=== PATIENT | male | born 1940 | race Two or more races ===

== ENCOUNTER 2019-08-25 10:15 | Inpatient (IN) | payer OTHER ==
--- NOTE | 2019-08-25 10:45 | PDOC ---
History of Present Illness - General Chief Complaint: Syncope/Near Syncope Stated Complaint: NAUSEA/VOMITING Time Seen by Provider: 08/25/19 10:43 - History of Present Illness Initial Comments: Quirino Oshea is a 79 y/o male with PMH significant for gastric CA s/p gastric resection 6 years ago, and colon CA dx 1 year ago, presenting today s/p near syncope and fall. Reports that he also had nausea and vomiting x3 days NB NB. Denies fall/head trauma/LOC. Denies heart palpitations/dizziness. Denies chest pain/shortness of breath. Reports nml bowel movement today. No diarrhea/constipation. No leg swelling. No back pain. Past History - Medical History Allergies/Adverse Reactions: Allergies Allergy/AdvReac Type Severity Reaction Status Date / Time No Known Allergies Allergy Verified 08/25/19 12:19 Home Medications: Ambulatory Orders Amlodipine Besylate [Norvasc -] 10 mg PO DAILY 08/25/19 Lisinopril 20 mg PO DAILY 08/25/19 Omeprazole 20 mg PO DAILY 08/25/19 metFORMIN HCL [Metformin HCl] 500 mg PO DAILY 08/25/19 Review of Systems - Review of Systems Comments:: GENERAL/CONSTITUTIONAL: No fever or chills. No weakness._ HEAD, EYES, EARS, NOSE AND THROAT: No change in vision. No change in hearing. No sore throat._ CARDIOVASCULAR: No chest pain or shortness of breath_ RESPIRATORY: Denies cough, hemoptysis_ GASTROINTESTINAL: Reports nausea and vomiting. No diarrhea or constipation._ GENITOURINARY: No dysuria, frequency, or change in urination._ MUSCULOSKELETAL: No joint or muscle swelling or pain. No neck or back pain._ SKIN: No rash_ NEUROLOGIC: Reports near syncope. No headache, vertigo, or change in strength/sensation._ ENDOCRINE: No increased thirst. No abnormal weight change_ HEMATOLOGIC/LYMPHATIC: No anemia, easy bleeding, or history of blood clots._ ALLERGIC/IMMUNOLOGIC: No hives or skin allergy._ *Physical Exam - Physical Exam GENERAL: Awake, alert, and oriented to person/place/time, in no acute distress_ HEAD: No signs of trauma, normocephalic, atraumatic _ EYES: PERRLA, EOMI, sclera anicteric, conjunctiva clear_ ENT: Hearing grossly normal, nares patent, oropharynx clear without exudates. No uvular deviation. Moist mucosa_ NECK: Normal ROM, supple, no lymphadenopathy, JVD, or masses_ LUNGS: No distress, speaks in full sentences, clear to auscultation bilaterally _ HEART: Regular rate and rhythm, normal S1 and S2, no murmurs appreciated, periph eral pulses normal and equal bilaterally._ ABDOMEN: Soft, nontender, normoactive bowel sounds. No guarding, no rebound. No masses_ EXTREMITIES: Normal inspection, Normal range of motion, no edema. No clubbing or cyanosis_ NEUROLOGICAL: Cranial nerves II through XII grossly intact. Normal speech, amb ulates with cane, no focal sensorimotor deficits _ SKIN: Warm, Dry, normal turgor, no rashes or lesions noted_ ED Treatment Course - LABORATORY CBC & Chemistry Diagram: 08/25/19 10:50 08/25/19 10:50 Medical Decision Making - Medical Decision Making 08/25/19 10:44 79M hx of colon CA s/p abdominal surgery presenting today with abd pain, nausea, and vomiting x3 days and near syncope and fall today. -labs -ekg -cxr -CT head -CT neck -CT t spine -CT abd 08/25/19 12:42 CXR negative for acute chest pathology. Labs reviewed. Laboratory Last Values WBC 5.9 K/mm3 (4.0-10.0) 08/25/19 10:50 RBC 4.44 M/mm3 (4.00-5.60) 08/25/19 10:50 Hgb 10.7 GM/dL (11.7-16.9) L 08/25/19 10:50 Hct 33.7 % (35.4-49) L 08/25/19 10:50 MCV 75.8 fl (80-96) L 08/25/19 10:50 MCH 24.0 pg (25.7-33.7) L 08/25/19 10:50 MCHC 31.7 g/dl (32.0-35.9) L 08/25/19 10:50 RDW 23.6 % (11.9-15.9) H 08/25/19 10:50 Plt Count 155 K/MM3 (134-434) 08/25/19 10:50 MPV 7.0 fl (7.5-11.1) L 08/25/19 10:50 Absolute Neuts (auto) 4.8 K/mm3 (1.5-8.0) 08/25/19 10:50 Neutrophils % 81.4 % (42.8-82.8) 08/25/19 10:50 Neutrophils % (Manual) 86.7 % (42.8-82.8) H 08/25/19 10:50 Band Neutrophils % 1.0 % 08/25/19 10:50 Lymphocytes % 8.3 % (8-40) 08/25/19 10:50 Lymphocytes % (Manual) 9.2 % (8-40) 08/25/19 10:50 Monocytes % 9.8 % (3.8-10.2) 08/25/19 10:50 Monocytes % (Manual) 3 % (3.8-10.2) L 08/25/19 10:50 Eosinophils % 0.2 % (0-4.5) 08/25/19 10:50 Eosinophils % (Manual) 0.0 % (0-4.5) 08/25/19 10:50 Basophils % 0.3 % (0-2.0) 08/25/19 10:50 Basophils % (Manual) 0.0 % (0-2.0) 08/25/19 10:50 Myelocytes % (Man) 0 % (0-2) 08/25/19 10:50 Promyelocytes % (Man) 0 % (0-2) 08/25/19 10:50 Blast Cells % (Manual) 0 % (0-0) 08/25/19 10:50 Nucleated RBC % 0 % (0-0) 08/25/19 10:50 Metamyelocytes 0 % (0-2) 08/25/19 10:50 Hypochromia 0 08/25/19 10:50 Platelet Estimate Decreased 08/25/19 10:50 Polychromasia 0 08/25/19 10:50 Poikilocytosis 0 08/25/19 10:50 Anisocytosis 1+ 08/25/19 10:50 Microcytosis 1+ 08/25/19 10:50 Macrocytosis 0 08/25/19 10:50 PT with INR 13.30 SEC (9.7-13.0) H 08/25/19 10:50 INR 1.13 (0.83-1.09) H 08/25/19 10:50 PTT (Actin FS) 25.6 SECONDS (25.2-36.5) 08/25/19 10:50 Sodium 141 mmol/L (136-145) 08/25/19 10:50 Potassium 4.3 mmol/L (3.5-5.1) 08/25/19 10:50 Chloride 107 mmol/L (98-107) 08/25/19 10:50 Carbon Dioxide 27 mmol/L (21-32) 08/25/19 10:50 Anion Gap 6 MMOL/L (8-16) L 08/25/19 10:50 BUN 23.1 mg/dL (7-18) H 08/25/19 10:50 Creatinine 1.1 mg/dL (0.55-1.3) 08/25/19 10:50 Est GFR (CKD-EPI)AfAm 74.13 08/25/19 10:50 Est GFR (CKD-EPI)NonAf 63.96 08/25/19 10:50 Random Glucose 157 mg/dL (74-106) H 08/25/19 10:50 Lactic Acid 2.5 mmol/L (0.4-2.0) H* 08/25/19 11:12 Calcium 8.6 mg/dL (8.5-10.1) 08/25/19 10:50 Total Bilirubin 0.9 mg/dL (0.2-1) 08/25/19 10:50 AST 22 U/L (15-37) 08/25/19 10:50 ALT 17 U/L (13-61) 08/25/19 10:50 Alkaline Phosphatase 179 U/L (45-117) H 08/25/19 10:50 Creatine Kinase 61 U/L (26-308) 08/25/19 10:50 Troponin I < 0.02 ng/ml (0.00-0.05) 08/25/19 10:50 Total Protein 7.1 g/dl (6.4-8.2) 08/25/19 10:50 Albumin 3.5 g/dl (3.4-5.0) 08/25/19 10:50 Lipase 56 U/L (73-393) L 08/25/19 10:50 08/25/19 12:43 CT head negative for acute intracranial pathology. CT neck/t-spine negative for acute fracture or subluxation. 08/25/19 13:35 EKG shows 78 bpm, NSR with PACs, no axis deviation, no ST elevation, QTc 471. 08/25/19 16:30 CT abd shows SBO. D/w Dr. Fall who requests CT abd with PO contrast and NG tube placement. D/w Dr. Perales who accepts the patient for admission. Discharge - Discharge Information Problems reviewed: Yes Clinical Impression/Diagnosis: Syncope and collapse Nausea and vomiting Qualifiers: Vomiting type: unspecified Vomiting Intractability: non-intractable Qualified Code(s): R11.2 - Nausea with vomiting, unspecified Condition: Stable - Admission Yes - Follow up/Referral - Patient Discharge Instructions - Post Discharge Activity
[2019-08-25 11:12] LABS: BASO % 0.3 % (0-2.0); EOS % 0.2 % (0-4.5); HEMATOCRIT 33.7 % (35.4-49); HEMOGLOBIN 10.7 GM/dL (11.7-16.9); LYMPH % 8.3 % (8-40); MCHC 31.7 g/dl (32.0-35.9); MEAN CELL VOLUME 75.8 fl (80-96); MONO % 9.8 % (3.8-10.2); NEUT % 81.4 % (42.8-82.8); PLATELET COUNT 155 K/MM3 (134-434); RBC 4.44 M/mm3 (4.00-5.60); RDW 23.6 % (11.9-15.9); WHITE BLOOD COUNT 5.9 K/mm3 (4.0-10.0)
[2019-08-25 11:19] LABS: INR 1.13 (0.83-1.09); PROTHROMBIN TIME (PATIENT) 13.3 SEC (9.7-13.0)
[2019-08-25 11:21] LABS: ACTIVATED PTT 25.6 SECONDS (25.2-36.5)
[2019-08-25 11:40] LABS: ANISOCYTOSIS 1+; MACROCYTOSIS 0; PLATELET ESTIMATE DECREASED
[2019-08-25 11:42] LABS: ALBUMIN 3.5 g/dl (3.4-5.0); ALK PHOS 179 U/L (45-117); ANION GAP 6 MMOL/L (8-16); BILIRUBIN,TOTAL 0.9 mg/dL (0.2-1); BLOOD UREA NITROGEN 23.1 mg/dL (7-18); CALCIUM 8.6 mg/dL (8.5-10.1); CHLORIDE 107 mmol/L (98-107); CO2 27 mmol/L (21-32); CREATININE 1.1 mg/dL (0.55-1.3); GLUCOSE,RANDOM 157 mg/dL (74-106); LIPASE 56 U/L (73-393); POTASSIUM 4.3 mmol/L (3.5-5.1); SGOT/AST 22 U/L (15-37); SGPT/ALT 17 U/L (13-61); SODIUM 141 mmol/L (136-145); TOT PROT 7.1 g/dl (6.4-8.2)
--- NOTE | 2019-08-25 11:49 | EKG ---
Test Reason : Blood Pressure : / mmHG Vent. Rate : 078 BPM Atrial Rate : 078 BPM P-R Int : 120 ms QRS Dur : 082 ms QT Int : 414 ms P-R-T Axes : 055 027 -38 degrees QTc Int : 471 ms POOR DATA QUALITY, INTERPRETATION MAY BE ADVERSELY AFFECTED SINUS RHYTHM WITH PREMATURE ATRIAL COMPLEXES ABNORMAL ECG NO PREVIOUS ECGS AVAILABLE Confirmed by LUÍS SIDDIQUI MD ([id number]) on 08/25/2019 11:48:38 AM Referred By: Confirmed By:LUÍS SIDDIQUI MD
[2019-08-25] MEDS ORDERED: LACTATED RINGERS SOLUTION 1000 ML INFUS.BAG IV ONE (12:07)
--- NOTE | 2019-08-25 12:59 | PDOC ---
Attending Attestation - Resident Resident Name: Lopez Gregg - ED Attending Attestation I have performed the following: I have examined & evaluated the patient, The case was reviewed & discussed with the resident, I agree w/resident's findings & plan, Exceptions are as noted - HPI HPI: 08/25/19 12:59 Agree with resident HPI - Physicial Exam PE: 08/25/19 12:59 Agree with resident exam - Medical Decision Making 08/25/19 13:01 79yo M hx colon ca s/p "surgery" on chemo last Thursday presents to the ED with 3 days of diffuse abd pain, nausea, and NBNB emesis. This AM, pt was vomiting and felt lightheaded, passed out and fell to the ground. Denies head strike but pt is a poor historian and can not remember if he had LOC or not. EKG non ischemic, with no evidence of arrhythmia Concern for dehydration + syncope. Also possible infection given chemo pt. Will do infectious w/u, trauma w/u given fall including CTH, CT c-spine, hydrate Given malignancy, surgical hx, abd pain will also obtain CTAP to eval for obstruction vs collection vs progression of disease Anticipate admission for tele monitoring Discharge - Discharge Information Problems reviewed: Yes Clinical Impression/Diagnosis: Syncope and collapse Nausea and vomiting Qualifiers: Vomiting type: unspecified Vomiting Intractability: non-intractable Qualified Code(s): R11.2 - Nausea with vomiting, unspecified Condition: Stable Disposition: TRANSFER ACUTE CARE/OTHER HOSP - Follow up/Referral - Patient Discharge Instructions - Post Discharge Activity
[2019-08-25 14:07] LABS: EPI CELLS 5 /uL (0-25.1); HYALINE CASTS 1 /uL (0-3.1); URINE APPEARANCE CLEAR; URINE BACTERIA 38 /uL (0-1359); URINE BILIRUBIN NEGATIVE (NEGATIVE); URINE COLOR YELLOW; URINE GLUCOSE (UA) NEGATIVE (NEGATIVE); URINE KETONE NEGATIVE (NEGATIVE); URINE LEUK ESTERASE NEGATIVE (NEGATIVE); URINE NITRITE NEGATIVE (NEGATIVE); URINE PROTEIN 1+ (NEGATIVE); URINE RBC 6 /uL (0-23.9); URINE WBC 3 /uL (0-25.8)
--- NOTE | 2019-08-25 14:41 | PN ---
Teaching Attending Note Name of Resident: Joe Perales ATTENDING PHYSICIAN STATEMENT I saw and evaluated the patient. I reviewed the resident's note and discussed the case with the resident. I agree with the resident's findings and plan as documented. SUBJECTIVE: Nausea vomiting passed out OBJECTIVE: Vital Signs Temperature 97.9 F 08/25/19 10:15 Pulse Rate 77 08/25/19 10:15 Respiratory Rate 16 08/25/19 10:15 Blood Pressure 117/65 08/25/19 10:15 O2 Sat by Pulse Oximetry (%) 100 08/25/19 10:15 General: Elderly man, comfortable, not in distress HEENT mucous membranes moist, no anemia, no jaundice, PERRLA, no nystagmus Neck: No JVD, supple, no bruit, thyroid palpably normal, normal carotid pulsations. Chest: Port-A Cath on right side, nontender, clear to auscultation bilaterally CVS: S1-S2 regular no murmur/gallop/rub Abdomen: Status post surgery healed scar, mild epigastric pain, bowel sounds present Extremities: No edema., No Calf tenderness, pulses present [employer]LO[employer]IST[employer] MANAGER: AO X3 , no gross motor sensory deficit CBC,CMP WBC 5.9 K/mm3 (4.0-10.0) 08/25/19 10:50 RBC 4.44 M/mm3 (4.00-5.60) 08/25/19 10:50 Hgb 10.7 GM/dL (11.7-16.9) L 08/25/19 10:50 Hct 33.7 % (35.4-49) L 08/25/19 10:50 MCV 75.8 fl (80-96) L 08/25/19 10:50 MCH 24.0 pg (25.7-33.7) L 08/25/19 10:50 MCHC 31.7 g/dl (32.0-35.9) L 08/25/19 10:50 RDW 23.6 % (11.9-15.9) H 08/25/19 10:50 Plt Count 155 K/MM3 (134-434) 08/25/19 10:50 MPV 7.0 fl (7.5-11.1) L 08/25/19 10:50 Absolute Neuts (auto) 4.8 K/mm3 (1.5-8.0) 08/25/19 10:50 Neutrophils % 81.4 % (42.8-82.8) 08/25/19 10:50 Neutrophils % (Manual) 86.7 % (42.8-82.8) H 08/25/19 10:50 Band Neutrophils % 1.0 % 08/25/19 10:50 Lymphocytes % 8.3 % (8-40) 08/25/19 10:50 Lymphocytes % (Manual) 9.2 % (8-40) 08/25/19 10:50 Monocytes % 9.8 % (3.8-10.2) 08/25/19 10:50 Monocytes % (Manual) 3 % (3.8-10.2) L 08/25/19 10:50 Eosinophils % 0.2 % (0-4.5) 08/25/19 10:50 Eosinophils % (Manual) 0.0 % (0-4.5) 08/25/19 10:50 Basophils % 0.3 % (0-2.0) 08/25/19 10:50 Basophils % (Manual) 0.0 % (0-2.0) 08/25/19 10:50 Myelocytes % (Man) 0 % (0-2) 08/25/19 10:50 Promyelocytes % (Man) 0 % (0-2) 08/25/19 10:50 Blast Cells % (Manual) 0 % (0-0) 08/25/19 10:50 Nucleated RBC % 0 % (0-0) 08/25/19 10:50 Metamyelocytes 0 % (0-2) 08/25/19 10:50 Hypochromia 0 08/25/19 10:50 Platelet Estimate Decreased 08/25/19 10:50 Polychromasia 0 08/25/19 10:50 Poikilocytosis 0 08/25/19 10:50 Anisocytosis 1+ 08/25/19 10:50 Microcytosis 1+ 08/25/19 10:50 Macrocytosis 0 08/25/19 10:50 Sodium 141 mmol/L (136-145) 08/25/19 10:50 Potassium 4.3 mmol/L (3.5-5.1) 08/25/19 10:50 Chloride 107 mmol/L (98-107) 08/25/19 10:50 Carbon Dioxide 27 mmol/L (21-32) 08/25/19 10:50 Anion Gap 6 MMOL/L (8-16) L 08/25/19 10:50 BUN 23.1 mg/dL (7-18) H 08/25/19 10:50 Creatinine 1.1 mg/dL (0.55-1.3) 08/25/19 10:50 Est GFR (CKD-EPI)AfAm 74.13 08/25/19 10:50 Est GFR (CKD-EPI)NonAf 63.96 08/25/19 10:50 Random Glucose 157 mg/dL (74-106) H 08/25/19 10:50 Lactic Acid 2.5 mmol/L (0.4-2.0) H* 08/25/19 11:12 Calcium 8.6 mg/dL (8.5-10.1) 08/25/19 10:50 Total Bilirubin 0.9 mg/dL (0.2-1) 08/25/19 10:50 AST 22 U/L (15-37) 08/25/19 10:50 ALT 17 U/L (13-61) 08/25/19 10:50 Alkaline Phosphatase 179 U/L (45-117) H 08/25/19 10:50 Creatine Kinase 61 U/L (26-308) 08/25/19 10:50 Troponin I < 0.02 ng/ml (0.00-0.05) 08/25/19 10:50 Total Protein 7.1 g/dl (6.4-8.2) 08/25/19 10:50 Albumin 3.5 g/dl (3.4-5.0) 08/25/19 10:50 Lipase 56 U/L (73-393) L 08/25/19 10:50 EKG: Normal sinus rhythm 78 QTC 471 Lawrence XX [address]-T changes CT scan abdomen [noncontrast]: Distended esophagus and proximal jejunum, status post gastrectomy esophageal jejunum anastomosis, distal part of small intestine and colon not distended poor quality. CT scan abdomen with p.o. contrast: Result pending CT CT head: No acute changes CT C-spine: No acute changes CT scan thoracolumbar spine: No acute changes Active Medications Enalaprilat (Vasotec Injection -) 2.5 mg IVPB Q6H TIMA Enoxaparin Sodium (Lovenox -) 40 mg SQ DAILY TIMA Sodium Chloride (Normal Saline -) 1,000 mls @ 100 mls/hr IV ASDIR TIMA Insulin Aspart (Novolog Vial Sliding Scale -) 1 vial SQ ACHS [facility]; Protocol Ondansetron HCl (Zofran Injection) 4 mg IVPUSH Q6H PRN PRN Reason: NAUSEA Pantoprazole Sodium (Protonix Iv) 40 mg IVPUSH DAILY [facility] ASSESSMENT AND PLAN: 79-year-old man lives at home, history of hypertension type 2 diabetes mellitus, history of CA stomach status post gastrectomy esophageal jejunal anastomosis 6 years ago at [facility], last year diagn osed colon cancer with mets on palliative chemotherapy every Thursday, last chemotherapy received on Friday August 23, 2019, patient has been having nausea vomiting since chemotherapy, as per daughter last night had multiple episodes of vomiting, patient went out and had a cup of coffee after that developed nausea vomited, after vomiting.she felt dizzy and passed out 911 was called brought into ED for further evaluation on arrival to ED alert oriented x3 denies any chest pain shortness of breath or palpitation, in the ED CT abdomen shows status post gastrectomy dilated fluid-filled esophagus antigen. As per patient he is able to pass flatus last BM was this morning. [Patient daughter is a [employer] employee translated for the patient as patient refused for language line] Active issues: 1. 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 2. Small intestinal obstruction: Initial CT scan was without p.o. contrast, dilated fluid-filled esophagus and upper part of the intestine, surgery consult, NG tube for decompression, n.p.o. except medication, Zofran 4 mg every 6 hourly, IV PPI, subsequent management as per CT scan result and surgery input. 3. Hypertension: Continue IV Vasotec 2.5 mg every 4. Type 2 diabetes mellitus: Continue correction dose insulin every 6 hourly 5. Colon cancer: On palliative chemotherapy 7. Elevated BUN and lactic acid: Continue IV hydration follow-up BMP and lactic acid level no clinical sign of infection. 8. GI vomiting: Can be due to chemo therapy induced for small bowel obstruction continue Zofran, PPI and bowel rest follow-up surgery recommendations. Continue Lovenox 40 mg subcu daily for DVT prophylaxis. Palliative care consult Case discussed with the resident.
--- NOTE | 2019-08-25 17:47 | HP ---
CHIEF COMPLAINT: nausea and vomiting and near-fainting PCP: HISTORY OF PRESENT ILLNESS: 79M w/ pmh of NIDDM, gastric CA(sp ?total gastrectomy at [facility] 6ys prior), colon CA(?stage IV, diagnosed 1yr ago) has been getting weekly chemotherapy(every Thursday with Dr Moore) presents to [facility] with complaint of nausea, vomiting(NBNB x2) since last night. Worse vomiting after drinking coffee this morning. Had a sensation that he was feeling week and nearly fainted. Has had similiar nausea, vomiting, last year when he was admitted for SBO and w/u with colonoscopy revealed colon cancer. SBO was treated with NGT at the time. Last BM was the morning prior to admission. Denies fever, chills, abdominal distension. Currently, has a mild appetite. Translation provided by adult daughter at bedside(an employee here at [employer]). ER course was notable for: (1) Tmax 97.9 (2) Lactic Acid 2.5 (3) UA neg (4) CTH: mod atrophy, neg acute ICH (5) CT cspine: multilevel mild degenerative disc disease. Mild compression of T10 superior endplate. Mod dilation of the entire esophagus with multiple surgical sutures intact (6) CT A/P: proximal small bowel dilation(jejunum up to 4cm), distal abdominal aorta(~2.5cm), borderline dilation of Right common iliac artery Recent Travel: denies PAST MEDICAL HISTORY: as above PAST SURGICAL HISTORY: total gastrectomy Social History: Smoking: last smoked 20ys prior Alcohol: last was 6ys prior Drugs: denies Allergies No Known Allergies Allergy (Verified 08/25/19 12:19) HOME MEDICATIONS: Home Medications Medication Instructions Recorded Amlodipine Besylate [Norvasc -] 10 mg PO DAILY 08/25/19 Lisinopril 20 mg PO DAILY 08/25/19 Omeprazole 20 mg PO DAILY 08/25/19 metFORMIN HCL [Metformin HCl] 500 mg PO DAILY 08/25/19 REVIEW OF SYSTEMS CONSTITUTIONAL: mild loss of appetite, Absent: fever, chills, diaphoresis, generalized weakness, malaise, weight lu nge HEENT: Absent: rhinorrhea, nasal congestion, throat pain, throat swelling, difficulty swallowing, mouth swelling, ear pain, eye pain, visual changes CARDIOVASCULAR: Absent: chest pain, syncope, palpitations, irregular heart rate, lightheadedness, peripheral edema RESPIRATORY: Absent: cough, shortness of breath, dyspnea with exertion, orthopnea, wheezing, stridor, hemoptysis GASTROINTESTINAL:nausea, vomiting Absent: abdominal pain, abdominal distension, diarrhea, constipation, melena, hematochezia GENITOURINARY: Absent: dysuria, frequency, urgency, hesitancy, hematuria, flank pain, genital pain MUSCULOSKELETAL: Absent: myalgia, arthralgia, joint swelling, back pain, neck pain SKIN: Absent: rash, itching, pallor HEMATOLOGIC/IMMUNOLOGIC: Absent: easy bleeding, easy bruising, lymphadenopathy, frequent infections ENDOCRINE: Absent: unexplained weight gain, unexplained weight loss, heat intolerance, cold intolerance NEUROLOGIC: Absent: headache, focal weakness or paresthesias, dizziness, unsteady gait, seizure, mental status changes, bladder or bowel incontinence PSYCHIATRIC: Absent: anxiety, depression, suicidal or homicidal ideation, hallucinations. PHYSICAL EXAMINATION Vital Signs - 24 hr 08/25/19 10:15 Temperature 97.9 F Pulse Rate 77 Respiratory 16 Rate Blood Pressure 117/65 O2 Sat by Pulse 100 Oximetry (%) GENERAL: Awake, alert, and fully oriented, in no acute distress. HEAD: NC/AT EYES: extraocular movements intact, sclera anicteric, conjunctiva clear. EARS, NOSE, THROAT: Ears normal, nares patent, oropharynx clear without exudates. Moist mucous membranes. NECK: Normal range of motion, supple without lymphadenopathy, JVD, or masses. LUNGS: Breath sounds equal, clear to auscultation bilaterally. No wheezes, and no crackles. No accessory muscle use. HEART: Regular rate and rhythm, normal S1 and S2 without murmur, rub or gallop. ABDOMEN: Soft, mild abd distension, mild tympany on percussion, hypoactive bowel sounds, tenderness with deep palpation throughout abd, no tenderness with light palpation, no rebound. MUSCULOSKELETAL: Normal range of motion at all joints. No bony deformities or tenderness. No CVA tenderness. UPPER EXTREMITIES: 2+ pulses, warm, well-perfused. No cyanosis. No clubbing. No peripheral edema. LOWER EXTREMITIES: 2+ pulses, warm, well-perfused. No calf tenderness. No peripheral edema. NEUROLOGICAL: Normal speech. Laboratory Results - last 24 hr 08/25/19 08/25/19 08/25/19 10:50 10:50 10:50 WBC 5.9 RBC 4.44 Hgb 10.7 L Hct 33.7 L MCV 75.8 L MCH 24.0 L MCHC 31.7 L RDW 23.6 H Plt Count 155 MPV 7.0 L Absolute Neuts (auto) 4.8 Neutrophils % 81.4 Neutrophils % (Manual) 86.7 H Band Neutrophils % 1.0 Lymphocytes % 8.3 Lymphocytes % (Manual) 9.2 Monocytes % 9.8 Monocytes % (Manual) 3 L Eosinophils % 0.2 Eosinophils % (Manual) 0.0 Basophils % 0.3 Basophils % (Manual) 0.0 Myelocytes % (Man) 0 Promyelocytes % (Man) 0 Blast Cells % (Manual) 0 Nucleated RBC % 0 Metamyelocytes 0 Hypochromia 0 Platelet Estimate Decreased Polychromasia 0 Poikilocytosis 0 Anisocytosis 1+ Microcytosis 1+ Macrocytosis 0 PT with INR 13.30 H INR 1.13 H PTT (Actin FS) 25.6 Sodium 141 Potassium 4.3 Chloride 107 Carbon Dioxide 27 Anion Gap 6 L BUN 23.1 H Creatinine 1.1 Est GFR (CKD-EPI)AfAm 74.13 Est GFR (CKD-EPI)NonAf 63.96 Random Glucose 157 H Lactic Acid Calcium 8.6 Total Bilirubin 0.9 AST 22 ALT 17 Alkaline Phosphatase 179 H Creatine Kinase 61 Troponin I < 0.02 Total Protein 7.1 Albumin 3.5 Lipase 56 L Urine Color Urine Appearance Urine pH Ur Specific [place] Urine Protein Urine Glucose (UA) Urine Ketones Urine Blood Urine Nitrite Urine Bilirubin Urine Urobilinogen Ur Leukocyte Esterase Urine WBC (Auto) Urine RBC (Auto) Urine Casts (Auto) U Epithel Cells (Auto) Urine Bacteria (Auto) 08/25/19 08/25/19 08/25/19 11:12 13:25 14:38 WBC RBC Hgb Hct MCV MCH MCHC RDW Plt Count MPV Absolute Neuts (auto) Neutrophils % Neutrophils % (Manual) Band Neutrophils % Lymphocytes % Lymphocytes % (Manual) Monocytes % Monocytes % (Manual) Eosinophils % Eosinophils % (Manual) Basophils % Basophils % (Manual) Myelocytes % (Man) Promyelocytes % (Man) Blast Cells % (Manual) Nucleated RBC % Metamyelocytes Hypochromia Platelet Estimate Polychromasia Poikilocytosis Anisocytosis Microcytosis Macrocytosis PT with INR INR PTT (Actin FS) Sodium Potassium Chloride Carbon Dioxide Anion Gap BUN Creatinine Est GFR (CKD-EPI)AfAm Est GFR (CKD-EPI)NonAf Random Glucose Lactic Acid 2.5 H* 2.5 H* Calcium Total Bilirubin AST ALT Alkaline Phosphatase Creatine Kinase Troponin I Total Protein Albumin Lipase Urine Color Yellow Urine Appearance Clear Urine pH 6.0 Ur Specific [place] 1.018 Urine Protein 1+ H Urine Glucose (UA) Negative Urine Ketones Negative Urine Blood Negative Urine Nitrite Negative Urine Bilirubin Negative Urine Urobilinogen 1.0 Ur Leukocyte Esterase Negative Urine WBC (Auto) 3 Urine RBC (Auto) 6 Urine Casts (Auto) 1 U Epithel Cells (Auto) 5 Urine Bacteria (Auto) 38 ASSESSMENT/PLAN: 79M w/ pmh of NIDDM, gastric CA(sp ?total gastrectomy at [facility] 6ys prior), colon CA(?stage IV, diagnosed 1yr ago) has been getting weekly chemotherapy(ev thursday with Dr Moore) presents to [facility] with complaint of nausea, vomiting(NBNB x2) since last night. CT imaging suggestive of SBO. Admitted for SBO #dilated small bowel(jejunum ~4cm) --likely 2/2 abdominal adhesions, less likely malignant obstruction > Lactic Acid 2.5 > CT A/P: proximal small bowel dilation(jejunum up to 4cm), distal abdominal aorta(~2.5cm), borderline dilation of Right common iliac artery - strict NPO - mIVF - Surgical Consult([facility]): --rec NGT # near fainting --likely 2/2 vasovagal from vomiting > CTH: mod atrophy, neg acute ICH > CT cspine: multilevel mild degenerative disc disease. Mild compression of T10 superior endplate. Mod dilation of the entire esophagus with multiple surgical sutures intact #colon CA - will notify his oncologist #chronic HTN - strict NPO, so enlaprit 2.5mg instead of lisinopril #chronic NIDDM - ISS FEN - strict NPO - NS @100 DVT PPX - lovenox Family Medical History Family Hx Diabetes: Mother Visit type - Emergency Visit Emergency Visit: Yes ED Registration Date: 08/25/19 Care time: The patient presented to the Emergency Department on the above date and was hospitalized for further evaluation of their emergent condition. - New Patient This patient is new to me today: Yes Date on this admission: 08/25/19 - Critical Care Critical Care patient: No ATTENDING PHYSICIAN STATEMENT I saw and evaluated the patient. I reviewed the resident's note and discussed the case with the resident. I agree with the resident's findings and plan as documented. SUBJECTIVE: OBJECTIVE: ASSESSMENT AND PLAN:
[2019-08-25] MEDS ORDERED: ONDANSETRON 4 MG/2 ML VIAL IVPUSH PRN (17:51)
[2019-08-25] MEDS ORDERED: SODIUM CHLORIDE 500 ML IV STA (19:10)
[2019-08-25] MEDS: SODIUM CHLORIDE 1,000 ML IV SCH (19:59)
[2019-08-25] MEDS ORDERED: INSULIN (NOVOLOG) ASPART 100 UNITS/ML 10ML VIAL ONE (20:04)
[2019-08-25] MEDS ORDERED: ACETAMINOPHEN 325 MG TABLET (FP) PO ONE (20:15)
[2019-08-25] MEDS: ENALAPRILAT DIHYDRATE 2.5 MG/2 ML VIAL IVPB SCH (20:26)
[2019-08-25] MEDS ORDERED: ACETAMINOPHEN 1000 MG/100 ML VIAL (NON FORMULARY) IVPB ONE (20:42)
[2019-08-25] MEDS: INSULIN SLIDING SCALE (NOVOLOG) 1 VIAL SQ SCH (22:21)
[2019-08-26 00:15] VITALS: BMI 23.3
[2019-08-26] MEDS: ENALAPRILAT DIHYDRATE 2.5 MG/2 ML VIAL IVPB SCH ×4 (00:51→17:35)
[2019-08-26] MEDS ORDERED: ACETAMINOPHEN 1000 MG/100 ML VIAL (NON FORMULARY) IVPB ONE (05:30)
[2019-08-26] MEDS: INSULIN SLIDING SCALE (NOVOLOG) 1 VIAL SQ SCH ×4 (06:09→22:00)
[2019-08-26 08:24] LABS: HEMOGLOBIN 10.4 GM/dL (11.7-16.9); MCH 23.7 pg (25.7-33.7); MCHC 31.6 g/dl (32.0-35.9); MEAN CELL VOLUME 75.1 fl (80-96); MEAN PLT VOLUME 8.4 fl (7.5-11.1); PLATELET COUNT 126 K/MM3 (134-434)
[2019-08-26 08:56] LABS: POTASSIUM 3.3 mmol/L (3.5-5.1)
[2019-08-26 09:15] LABS: ALBUMIN 2.7 g/dl (3.4-5.0); BILIRUBIN,TOTAL 1.4 mg/dL (0.2-1); BLOOD UREA NITROGEN 16.8 mg/dL (7-18); CALCIUM 7.5 mg/dL (8.5-10.1); CREATININE 0.8 mg/dL (0.55-1.3); MAGNESIUM 1.9 mg/dL (1.8-2.4); PHOSPHOROUS 2.2 mg/dL (2.5-4.9); TOT PROT 5.7 g/dl (6.4-8.2)
[2019-08-26] MEDS ORDERED: PANTOPRAZOLE SODIUM 40 MG VIAL IVPUSH SCH (10:00)
[2019-08-26] MEDS ORDERED: ENOXAPARIN NA (PORCINE) 40 MG/0.4 ML DISP.SYRIN SQ SCH (10:00)
[2019-08-26] MEDS ORDERED: POTASSIUM PHOSPHATE 15 MM in DEXTROSE 5%-WATER - 250 ML IVPB ONE (10:00)
[2019-08-26] MEDS ORDERED: ENALAPRILAT DIHYDRATE 2.5 MG/2 ML VIAL IVPB SCH (10:00)
[2019-08-26] MEDS ORDERED: ALBUTEROL SO4 HFA INHALER IH PRN (10:16)
[2019-08-26] MEDS: SODIUM CHLORIDE 1,000 ML IV SCH ×2 (10:18→22:01)
--- NOTE | 2019-08-26 12:41 | CONSULT ---
<Tanisha Ceja - Last Filed: 08/26/19 14:22> - Consultation REQUESTING PROVIDER: CONSULT REQUEST: We have been asked to surgically evaluate this patient for SBO in the setting of gastric and colon CA with mets? PCP: Memo Farfan HISTORY OF PRESENT ILLNESS: 79M w/ pmh of NIDDM, gastric CA- s/p Jimi n y gastrectomy at [facility] 6ys ago, Colon CA? stage IV, diagnosed 1yr ago, has been getting weekly chemotherapy under the care of Dr Satish Gustafson. Patient presented to [facility] with complaint of nausea, vomiting (NBNB x2) x1 day. Worse vomiting after drinking coffee this morning. Has had similiar nausea, vomiting, last year when he was admitted for SBO and workup with colonoscopy revealed colon cancer. SBO was treated with NGT at the time. Last BM was the morning prior to admission. Denies fever, chills, abdominal distension. Currently, has a mild appetite. Recent Travel: denies PAST MEDICAL HISTORY: as above PAST SURGICAL HISTORY: total gastrectomy Social History: Smoking: last smoked 20ys prior Alcohol: last was 6ys prior Drugs: denies Allergies No Known Allergies Allergy (Verified 08/25/19 12:19) HOME MEDICATIONS: Home Medications Medication Instructions Recorded Amlodipine Besylate [Norvasc -] 10 mg PO DAILY 08/25/19 Lisinopril 20 mg PO DAILY 08/25/19 Omeprazole 20 mg PO DAILY 08/25/19 metFORMIN HCL [Metformin HCl] 500 mg PO DAILY 08/25/19 REVIEW OF SYSTEMS Absent: fever, chills, diaphoresis, weight change HEENT: Absent: rhinorrhea, nasal congestion, throat pain, throat swelling, difficulty swallowing CARDIOVASCULAR: Absent: chest pain, peripheral edema RESPIRATORY: Absent: cough, shortness of breath, GASTROINTESTINAL: +nausea, +vomiting, +abdominal pain, Absent: abdominal distension, diarrhea, constipation, GENITOURINARY: Absent: dysuria, frequency, urgency, hesitancy, MUSCULOSKELETAL: Absent: myalgia, arthralgia, SKIN: Absent: rash, itching, pallor HEMATOLOGIC/IMMUNOLOGIC: Absent: easy bleeding, easy bruising, lymphadenopathy, frequent infections ENDOCRINE: Absent: unexplained weight gain, NEUROLOGIC: Absent: headache, focal weakness or paresthesias PSYCHIATRIC: Absent: anxiety, depression PHYSICAL EXAMINATION Vital Signs Period Temp Pulse Resp BP Sys/[place] Pulse Ox Last 24 Hr 98.2 F-100.3 F 78-96 16-20 120-145/74-82 91-97 GENERAL: Awake, alert, and fully oriented, in no acute distress. HEAD: NC/AT NECK: trachea midline LUNGS:Unlabored resp on RA. No accessory muscle use. ABDOMEN: Large well healed widened scar over epigastrum and large well scar over right abdomen with several smaller scars throughout. Soft, mild abdomen distension, mild tympany on percussion, hypoactive bowel sounds, focal TTP LLQ. no tenderness with light palpation, no rebound. MUSCULOSKELETAL: moving all extremities without limitation. UPPER EXTREMITIES: warm, well-perfused, No cyanosis. No clubbing. No peripheral edema. LOWER EXTREMITIES:, warm, well-perfused. No calf tenderness. No peripheral edema. NEUROLOGICAL: Normal speech. CBC, BMP 08/26/19 06:45 08/26/19 06:45 Abnormal Lab Results 08/25/19 08/25/19 08/26/19 13:25 14:38 06:45 WBC 2.0 L Hgb 10.4 L Hct 33.0 L MCV 75.1 L MCH 23.7 L MCHC 31.6 L RDW 23.0 H Plt Count 126 L Potassium Anion Gap Random Glucose Lactic Acid 2.5 H* Calcium Phosphorus Total Bilirubin Alkaline Phosphatase Total Protein Albumin Urine Protein 1+ H 08/26/19 06:45 WBC Hgb Hct MCV MCH MCHC RDW Plt Count Potassium 3.3 L Anion Gap 6 L Random Glucose 110 H Lactic Acid Calcium 7.5 L Phosphorus 2.2 L Total Bilirubin 1.4 H Alkaline Phosphatase 145 H Total Protein 5.7 L Albumin 2.[address] abdomen and pelvis without contrast 08/25/19 patient is s/p total gastrectomy with anastomosis of the esophagus to the jejunum. Moderate amount of fluid distension in the distal esophagus and significant dilatation of the proximal small bowel, jejunum measuring up to 4cm in diameter. Mid and distal small bowel loops are not dilated suggestiv of small bowl obstruction, the level which is not clear on this exam . No free air in the pelvis. S/p cholecystecomy with surgical metalic clips present. distal abdominal aorta(~2.5cm), borderline dilation of Right common iliac artery Problem List - Problems (1) Nausea and vomiting Assessment/Plan: 79M w/ pmh of NIDDM, gastric CA (s/p total gastrectomy at [facility] 6ys prior), colon CA ? stage IV diagnosed 1yr ago currently being treated with Chemotherapy at [facility]. Presents to [facility] with complaint of nausea, vomiting (NBNB x2), CT imaging suggestive of SBO. Patient currently stable with soft and relatively benign abdomen with no indication for emergent surgical intervention at this time. Evaluation and plan discussed with Dr Fall who has reviewed the patient's EMR and imaging. Given the complexity of this case, the patient requires a higher level of care under the direction of his physicians/team at the institution in which he has been undergoing treatment and had his gastrectomy at. Please consider transfer to [facility] at this time. Code(s): R11.2 - NAUSEA WITH VOMITING, UNSPECIFIED Qualifiers: Vomiting type: unspecified Vomiting Intractability: non-intractable Qualified Code(s): R11.2 - Nausea with vomiting, unspecified <Piyush Fall - Last Filed: 08/26/19 14:43> - Consultation REQUESTING PROVIDER: CONSULT REQUEST: We have been asked to surgically evaluate this patient for (specify). PCP:Memo Farfan HISTORY OF PRESENT ILLNESS: PMHx: PSHx: Home Medications Medication Instructions Recorded Amlodipine Besylate [Norvasc -] 10 mg PO DAILY 08/25/19 Lisinopril 20 mg PO DAILY 08/25/19 Omeprazole 20 mg PO DAILY 08/25/19 metFORMIN HCL [Metformin HCl] 500 mg PO DAILY 08/25/19 Meclizine HCl 25 mg PO TID 08/26/19 Allergies Allergy/AdvReac Type Severity Reaction Status Date / Time No Known Allergies Allergy Verified 08/25/19 12:19 REVIEW OF SYSTEMS: CONSTITUTIONAL: Absent: fever, chills, diaphoresis, generalized weakness, malaise, loss of appetite, weight change CARDIOVASCULAR: Absent: chest pain, syncope, palpitations, irregular heart rate, lightheadedness, peripheral edema RESPIRATORY: Absent: cough, shortness of breath, dyspnea with exertion, wheezing, stridor, hemoptysis GASTROINTESTINAL: Absent: abdominal pain, abdominal distension, nausea, vomiting, diarrhea, constipation, melena, hematochezia GENITOURINARY: Absent: dysuria, frequency, urgency, hesitancy, hematuria, flank pain, genital pain MUSCULOSKELETAL: Absent: myalgia, arthralgia, joint swelling, back pain, neck pain SKIN: Absent: rash, itching, pallor HEMATOLOGIC/IMMUNOLOGIC: Absent: easy bleeding, easy bruising, lymphadenopathy NEUROLOGIC: Absent: headache, focal weakness, paresthesias, dizziness, unsteady gait, seizure, mental status changes, bladder or bowel incontinence PSYCHIATRIC: Absent: anxiety, depression, suicidal or homicidal ideation, hallucinations. PHYSICAL EXAM: GENERAL: Awake, alert, and fully oriented, in no acute distress. HEAD: Normal with no signs of trauma. EYES: PERRL, sclera anicteric, conjunctiva clear. NECK: Normal ROM, supple without lymphadenopathy, JVD, or masses. LUNGS: Clear to auscultation bilat anteriorly. No wheezes, and no crackles. No accessory muscle use. HEART: Regular rate and rhythm. No murmurs ABDOMEN: Soft, nontender, not distended, normoactive bowel sounds, no guarding, no rebound, no masses. No organomegaly. MUSCULOSKELETAL: Normal ROM at all joints. No bony deformities or tenderness. No CVA tenderness. UPPER EXTREMITIES: 2+ pulses, warm, well-perfused. No cyanosis. Cap refill <2 seconds. No peripheral edema. LOWER EXTREMITIES: 2+ pulses, warm, well-perfused. No calf tenderness. No peripheral edema. NEUROLOGICAL: Normal speech, gait not observed. PSYCH: Cooperative. Good eye contact. Appropriate mood and affect. SKIN: Warm, dry, normal turgor, no rashes or lesions noted. Vital Signs Temperature 100.3 F H 08/26/19 05:43 Pulse Rate 96 H 08/26/19 05:43 Respiratory Rate 20 08/26/19 05:43 Blood Pressure 144/77 08/26/19 05:43 O2 Sat by Pulse Oximetry (%) 91 L 08/26/19 00:18 Lab Results WBC 2.0 K/mm3 (4.0-10.0) L 08/26/19 06:45 RBC 4.40 M/mm3 (4.00-5.60) 08/26/19 06:45 Hgb 10.4 GM/dL (11.7-16.9) L 08/26/19 06:45 Hct 33.0 % (35.4-49) L 08/26/19 06:45 MCV 75.1 fl (80-96) L 08/26/19 06:45 MCHC 31.6 g/dl (32.0-35.9) L 08/26/19 06:45 RDW 23.0 % (11.9-15.9) H 08/26/19 06:45 Plt Count 126 K/MM3 (134-434) L 08/26/19 06:45 INR 1.13 (0.83-1.09) H 08/25/19 10:50 Sodium 139 mmol/L (136-145) 08/26/19 06:45 Potassium 3.3 mmol/L (3.5-5.1) L 08/26/19 06:45 Chloride 106 mmol/L (98-107) 08/26/19 06:45 Carbon Dioxide 27 mmol/L (21-32) 08/26/19 06:45 Anion Gap 6 MMOL/L (8-16) L 08/26/19 06:45 BUN 16.8 mg/dL (7-18) 08/26/19 06:45 Creatinine 0.8 mg/dL (0.55-1.3) 08/26/19 06:45 Random Glucose 110 mg/dL (74-106) H 08/26/19 06:45 Calcium 7.5 mg/dL (8.5-10.1) L 08/26/19 06:45 Dr. Fall- agree with above. pt seen and examined an non toxic. sbo appears to be at jejuno-jejunostomy anastamosis from jimi n y gastrectomy. in setting of stage 4 colon ca should be managed at tertiary care. surgically stable for transfer
--- NOTE | 2019-08-26 15:05 | CONSULT ---
Consultation: REQUESTING PROVIDER: Dr. Farfan CONSULT REQUEST: We have been asked to medically evaluate this patient for neutropenia. HISTORY OF PRESENT ILLNESS: Pt. is a 79 y.o. [place]-Speaking M w/ PMHx. of DM, Gastric CA(Sveta-en-Y Gastrectomy 6 years ago at [facility], and Colon CA(Ddx. 1 year ago currently on 5-FU monotherapy for 6 months). Pt. presented for nausea and vomiting that started 5 days ago. Pt. states that he has epigastric tenderness and feels nauseous. Pt. denies any fever or chills, pain in his chest, diarrhea or constipation. Pt. endorses shortness of breath and is dyspneic on conversation which he states has been going on for the last few days as well. Pt. does not use oxygen normally at home. Pt. endorses cancer history in his brothers, sisters and father but is unable to state what types. Call was placed to Dr. Khan his oncologist at [facility] who states that Pt. when diagnosed was started on Oxaliplating and 5-FU however Pt. was unable to tolerate and developed cytopenias, since de-escalation to monotherapy with 5-FU only over "at least the last 6 months." Pt. has never had episodes of any cytopenias and has not needed any dose reductions and has missed very few if any of his weekly treatment sessions. Dr. Khan also stated that he is known to leave his house frequently despite his trying to restrict him and that he does not follow social distancing protocols. Per Dr. Khan he is very high risk for COVID-19. REVIEW OF SYSTEMS: As above PHYSICAL EXAMINATION Vital Signs - 24 hr 08/25/19 08/25/19 08/25/19 17:47 17:49 19:00 Temperature 98.2 F 99.2 F Pulse Rate 78 Pulse Rate [ 82 Left Radial] Respiratory 16 18 Rate Blood Pressure 145/79 Blood Pressure 120/82 [Left Arm] O2 Sat by Pulse 96 96 97 Oximetry (%) 08/25/19 08/25/19 08/25/19 20:00 20:18 20:36 Temperature 99.3 F Pulse Rate 78 Pulse Rate [ Left Radial] Respiratory 20 Rate Blood Pressure 143/80 Blood Pressure [Left Arm] O2 Sat by Pulse 96 96 96 Oximetry (%) 08/26/19 08/26/19 00:18 05:43 Temperature 99.1 F 100.3 F H Pulse Rate 81 96 H Pulse Rate [ Left Radial] Respiratory 20 20 Rate Blood Pressure 144/74 144/77 Blood Pressure [Left Arm] O2 Sat by Pulse 91 L Oximetry (%) GENERAL: Awake, alert, and fully oriented, in no acute distress. HEAD: Normal with no signs of trauma. EYES: Pupils equal, round and reactive to light, extraocular movements intact, sclera anicteric, conjunctiva clear. EARS, NOSE, THROAT: Ears normal, nares patent, oropharynx with thickened saliva. Moist mucous membranes. NECK: Normal range of motion LUNGS: Bibasilar crackles L>R, wheezing, on 4L supplemntal oxygen HEART: Regular rate and rhythm, normal S1 and S2 without murmur, rub or gallop. ABDOMEN: Soft, epigastric tenderness, not distended, normoactive bowel sounds, no guarding, no rebound, no masses. No hepatomegaly or splenomegaly. CCY and Gastrectomy surgical scars. MUSCULOSKELETAL: No CVA tenderness. UPPER EXTREMITIES: 2+ pulses, warm, well-perfused. No cyanosis. No clubbing. No peripheral edema. LOWER EXTREMITIES: 2+ dorsal pedal pulses, warm, well-perfused. No calf tender ness. No peripheral edema. NEUROLOGICAL: Cranial nerves II-XII intact. Normal speech. Normal gait. PSYCHIATRIC: Cooperative. Good eye contact. Appropriate mood and affect. SKIN: Warm, dry, normal turgor, no rashes or lesions noted. Laboratory Results - last 24 hr 08/25/19 08/25/19 08/25/19 14:38 20:31 22:21 WBC RBC Hgb Hct MCV MCH MCHC RDW Plt Count MPV Sodium Potassium Chloride Carbon Dioxide Anion Gap BUN Creatinine Est GFR (CKD-EPI)AfAm Est GFR (CKD-EPI)NonAf POC Glucometer 137 Random Glucose Lactic Acid 2.5 H* 1.9 Calcium Phosphorus Magnesium Total Bilirubin AST ALT Alkaline Phosphatase Total Protein Albumin TSH 08/26/19 08/26/19 08/26/19 06:07 06:45 06:45 WBC 2.0 L RBC 4.40 Hgb 10.4 L Hct 33.0 L MCV 75.1 L MCH 23.7 L MCHC 31.6 L RDW 23.0 H Plt Count 126 L MPV 8.4 D Sodium 139 Potassium 3.3 L Chloride 106 Carbon Dioxide 27 Anion Gap 6 L BUN 16.8 Creatinine 0.8 Est GFR (CKD-EPI)AfAm 99.17 Est GFR (CKD-EPI)NonAf 85.56 POC Glucometer 118 Random Glucose 110 H Lactic Acid Calcium 7.5 L Phosphorus 2.2 L Magnesium 1.9 Total Bilirubin 1.4 H AST 23 ALT 13 Alkaline Phosphatase 145 H Total Protein 5.7 L Albumin 2.7 L TSH 0.64 08/26/19 08/26/19 07:47 11:50 WBC RBC Hgb Hct MCV MCH MCHC RDW Plt Count MPV Sodium Potassium Chloride Carbon Dioxide Anion Gap BUN Creatinine Est GFR (CKD-EPI)AfAm Est GFR (CKD-EPI)NonAf POC Glucometer 119 108 Random Glucose Lactic Acid Calcium Phosphorus Magnesium Total Bilirubin AST ALT Alkaline Phosphatase Total Protein Albumin TSH Active Medications Generic Name Dose Route Start Last Admin Trade Name Freq PRN Reason Stop Dose Admin Albuterol Sulfate 2 puff 08/26/19 10:16 08/26/19 13:08 Ventolin Hfa Inhaler - IH 2 puff Q4H PRN Administration SHORT OF BREATH/WHEEZING Budesonide/Formoterol Fumarate 2 puff 08/26/19 22:00 Symbicort 80/4.5mcg - IH BID TIMA Enalaprilat 2.5 mg 08/25/19 18:00 08/26/19 12:03 Vasotec Injection - IVPB 2.5 mg Q6H TIMA Administration Enoxaparin Sodium 40 mg 08/26/19 10:00 08/26/19 10:19 Lovenox - SQ 40 mg DAILY TIMA Administration Sodium Chloride 1,000 mls @ 100 mls/hr 08/25/19 18:00 08/26/19 10:18 Normal Saline - IV 100 mls/hr ASDIR TIMA Administration Piperacillin Sod/Tazobactam 50 mls @ 100 mls/hr 08/26/19 18:00 Sod 3.375 gm/ Dextrose IVPB Q8H-IV TIMA Protocol Piperacillin Sod/Tazobactam 50 mls @ 100 mls/hr 08/26/19 18:00 Sod 3.375 gm/ Dextrose IVPB 08/27/19 10:29 Q8H-IV TIMA Protocol Insulin Aspart 1 vial 08/25/19 22:00 08/26/19 11:51 Novolog Vial Sliding Scale - SQ Not Given ACHS TIMA Protocol Ondansetron HCl 4 mg 08/25/19 17:51 08/25/19 23:45 Zofran Injection IVPUSH 4 mg Q6H PRN Administration NAUSEA Pantoprazole Sodium 40 mg 08/26/19 10:00 08/26/19 10:18 Protonix Iv IVPUSH 40 mg DAILY TIMA Administration ASSESSMENT/PLAN: Dispo: We will continue to follow the patient. Thank you for this consultative opportunity. Visit type - Medication Review Med list reviewed for High Risk Meds patients 65 and older: Yes - Emergency Visit Emergency Visit: Yes ED Registration Date: 08/25/19 Care time: The patient presented to the Emergency Department on the above date and was hospitalized for further evaluation of their emergent condition. - New Patient This patient is new to me today: Yes Date on this admission: 08/26/19 - Critical Care Critical Care patient: No ATTENDING PHYSICIAN STATEMENT I saw and evaluated the patient. I reviewed the resident's note and discussed the case with the resident. I agree with the resident's findings and plan as documented. SUBJECTIVE: OBJECTIVE: ASSESSMENT AND PLAN:
[2019-08-26] MEDS ORDERED: VANCOMYCIN 1 GM in D5W (PRE-DOCKED) 1,000 MG/250 ML IVPB SCH (15:15)
--- NOTE | 2019-08-26 16:25 | PN ---
Progress Note (short form) - Note Progress Note: ID CONSULT DICTATED CHART REVIEWED, PT SEEN CASE DISCUSSED WITH DAUGHTER AT BEDSIDE FEBRILE NEUTROPENIA R/O NEUTROPENIC SEPSIS STAGE IV COLON CA ON CHEMO AWAIT C/S EMPIRIC ZOSYN + STAT DOSE VANCOMYCIN
[2019-08-26] MEDS ORDERED: VANCOMYCIN 1,000 MG in DEXTROSE 5%-WATER - 250 ML IVPB ONE (16:27)
[2019-08-26 17:06] VITALS: BP 135/74; PULSE 89; TEMP 98.8
[2019-08-26] MEDS ORDERED: PIPERACILLIN/TAZOB 3.375 GM 3.375 GM in DEXTROSE 5%-WATER - 50 ML IVPB SCH ×3 (18:00)
--- NOTE | 2019-08-26 18:43 | CONS ---
DATE OF CONSULTATION: 08/26/2019 REASON FOR CONSULTATION: Small bowel obstruction. BRIEF HISTORY: This is a 79-year-old male with a distant history of a probable Sveta-en-Y gastrectomy for gastric cancer. He has been recently diagnosed with metastatic colon cancer and is being managed at [facility]. He presented to [facility] emergency room with signs of a small bowel obstruction. He had 2 CAT scans suggesting obstruction, appears to be proximal on the left side, and appears to be possibly associated with the jejunojejunostomy anastomosis. The patient was admitted, recommendations were for a nasogastric decompression which were not done. The patient is currently complaining of nausea but sitting up and otherwise appears comfortable. PAST MEDICAL HISTORY: As stated in the HPI. PAST SURGICAL HISTORY: As stated in the HPI. SOCIAL HISTORY: Significant for quitting tobacco, also significant for quitting alcohol. FAMILY HISTORY: Noncontributory. HOME MEDICATIONS: Include: 1. Norvasc. 2. Lisinopril. 3. Prilosec. 4. Metformin. REVIEW OF SYSTEMS: General: Denies fatigue or malaise. Cardiac: Denies chest pain. Respiratory: Denies shortness of breath. Gastrointestinal: Admits to nausea. Genitourinary: Denies dysuria. Musculoskeletal: Denies joint pain. Psychiatric: Denies anxiety, depression, or hearing voices. PHYSICAL EXAMINATION: General: This is thin 79-year-old male in no distress. Vital signs: He is afebrile with a T-max of 100.3. HEENT: Head is normocephalic. Sclerae anicteric. Neck: Supple. Chest: Clear. Abdomen: Soft. He has mild tenderness on the left side. He has a wide portion of his midline scar in the upper part, and he has an area of fullness under the skin to the left of the incision. It does not appear to be a hernia. Extremities: Trace edema. LABORATORY: Review of his laboratory: His white blood cell count is low at 2.0, his platelet count is low at 126 likely from chemotherapy. His electrolytes have a potassium that is low at 3.3, lactic acid is normal, albumin is low at 2.7. His COVID status is pending. IMAGING: His imaging is as in HPI. ASSESSMENT: This is a 79-year-old male with stage 4 colon cancer, previous Sveta-en-Y gastrectomy from reviewing the CAT scan with possible bowel obstruction associated with jejunojejunostomy. This is either from the surgery or from carcinomatosis. Patient currently does not have a nasogastric tube, which is recommended. He appears to be stable. Because of the abnormal Sveta-en-Y anatomy in the setting of stage 4 colon cancer, the patient would best be managed in a tertiary care center since he is an active patient at [facility], just received chemotherapy, I recommend he be transferred back. Patient is currently stable for transfer. DO JACKY MCWILLIAMS/[id number]
--- NOTE | 2019-08-26 18:56 | PN ---
Teaching Attending Note Name of Resident: Alberto Worley ATTENDING PHYSICIAN STATEMENT I saw and evaluated the patient. I reviewed the resident's note and discussed the case with the resident. I agree with the resident's findings and plan as documented. SUBJECTIVE: Patient looks lethargic, s/p chemo at [facility], presented with SBO. No fever or chills, no shortness of breath, looks lethargic. OBJECTIVE: Vital Signs Temperature 98.8 F 08/26/19 17:05 Pulse Rate 89 08/26/19 17:05 Respiratory Rate 20 08/26/19 17:05 Blood Pressure 135/74 08/26/19 17:05 O2 Sat by Pulse Oximetry (%) 94 L 08/26/19 17:05 PE: per resident's note CBCD WBC 2.0 K/mm3 (4.0-10.0) L 08/26/19 06:45 RBC 4.40 M/mm3 (4.00-5.60) 08/26/19 06:45 Hgb 10.4 GM/dL (11.7-16.9) L 08/26/19 06:45 Hct 33.0 % (35.4-49) L 08/26/19 06:45 MCV 75.1 fl (80-96) L 08/26/19 06:45 MCHC 31.6 g/dl (32.0-35.9) L 08/26/19 06:45 RDW 23.0 % (11.9-15.9) H 08/26/19 06:45 Plt Count 126 K/MM3 (134-434) L 08/26/19 06:45 MPV 8.4 fl (7.5-11.1) D 08/26/19 06:45 CMP Sodium 139 mmol/L (136-145) 08/26/19 06:45 Potassium 3.3 mmol/L (3.5-5.1) L 08/26/19 06:45 Chloride 106 mmol/L (98-107) 08/26/19 06:45 Carbon Dioxide 27 mmol/L (21-32) 08/26/19 06:45 Anion Gap 6 MMOL/L (8-16) L 08/26/19 06:45 BUN 16.8 mg/dL (7-18) 08/26/19 06:45 Creatinine 0.8 mg/dL (0.55-1.3) 08/26/19 06:45 Random Glucose 110 mg/dL (74-106) H 08/26/19 06:45 Calcium 7.5 mg/dL (8.5-10.1) L 08/26/19 06:45 Total Bilirubin 1.4 mg/dL (0.2-1) H 08/26/19 06:45 AST 23 U/L (15-37) 08/26/19 06:45 ALT 13 U/L (13-61) 08/26/19 06:45 Alkaline Phosphatase 145 U/L (45-117) H 08/26/19 06:45 Total Protein 5.7 g/dl (6.4-8.2) L 08/26/19 06:45 Albumin 2.7 g/dl (3.4-5.0) L 08/26/19 06:45 CARDIAC ENZYMES Creatine Kinase 61 U/L (26-308) 08/25/19 10:50 Troponin I < 0.02 ng/ml (0.00-0.05) 08/25/19 10:50 Current Medications Generic Name Dose Route Start Last Admin Trade Name Freq PRN Reason Stop Dose Admin Albuterol Sulfate 2 puff 08/26/19 10:16 08/26/19 13:08 Ventolin Hfa Inhaler - IH 2 puff Q4H PRN Administration SHORT OF BREATH/WHEEZING Budesonide/Formoterol Fumarate 2 puff 08/26/19 22:00 Symbicort 80/4.5mcg - IH BID TIMA Enalaprilat 2.5 mg 08/25/19 18:00 08/26/19 17:35 Vasotec Injection - IVPB 2.5 mg Q6H TIMA Administration Enoxaparin Sodium 40 mg 08/26/19 10:00 08/26/19 10:19 Lovenox - SQ 40 mg DAILY TIMA Administration Sodium Chloride 1,000 mls @ 100 mls/hr 08/25/19 18:00 08/26/19 10:18 Normal Saline - IV 100 mls/hr ASDIR TIMA Administration Piperacillin Sod/Tazobactam 50 mls @ 100 mls/hr 08/26/19 18:00 08/26/19 17:36 Sod 3.375 gm/ Dextrose IVPB 100 mls/hr Q8H-IV TIMA Administration Protocol Insulin Aspart 1 vial 08/25/19 22:00 08/26/19 16:18 Novolog Vial Sliding Scale - SQ Not Given ACHS [facility] Protocol Ondansetron HCl 4 mg 08/25/19 17:51 08/25/19 23:45 Zofran Injection IVPUSH 4 mg Q6H PRN Administration NAUSEA Pantoprazole Sodium 40 mg 08/26/19 10:00 08/26/19 10:18 Protonix Iv IVPUSH 40 mg DAILY TIMA Administration Home Medications Medication Instructions Recorded Amlodipine Besylate [Norvasc -] 10 mg PO DAILY 08/25/19 Lisinopril 20 mg PO DAILY 08/25/19 Omeprazole 20 mg PO DAILY 08/25/19 metFORMIN HCL [Metformin HCl] 500 mg PO DAILY 08/25/19 Meclizine HCl 25 mg PO TID 08/26/19 Microbiology 08/25/19 13:25 Urine - Urine Clean Catch Urine Culture - Final NO GROWTH OBTAINED ASSESSMENT AND PLAN: This patient is a 79yom with Pmhx of NIDDM, gastric CA- s/p Sveta n y gastrectomy at [facility] 6ys ago, stage IV colon Ca , diagnosed 1yr ago, on weekly chemo therapy under the care of Dr Satish Gustafson. Patient presented to [facility] with complaint of nausea, vomiting and was found to have SBO . #Acute SBO: given the complexity of this case, the patient requires a higher level of care as per Dr nielsen and needs to transfer to [facility] at this time. IVF continue, NPO. #Febrile NEUTROPENIA : R/O NEUTROPENIC SEPSIS , on IV abx EMPIRIC ZOSYN + STAT DOSE VANCOMYCIN, Id on the case , AWAIT C/S #STAGE IV COLON CA ON CHEMO: s/p chemo, oncology on the case DVT Px; Lovenox EKg : Qtc 471
--- NOTE | 2019-08-26 19:27 | DS ---
Physical Exam: SUBJECTIVE: No overnight events. Patient seen and examined. Pt noted pain on Left sided abdominal pain OBJECTIVE: Vital Signs Period Temp Pulse Resp BP Sys/[place] Pulse Ox Last 24 Hr 98.6 F-100.3 F 66-96 20-20 101-144/45-80 91-96 PHYSICAL EXAM GENERAL: The patient is awake, alert, and fully oriented, HEENT: NT/NC, patent nares, dry mucous membranes LUNGS: Breath sounds equal, clear to auscultation bilaterally, no wheezes, no crackles, no accessory muscle use. HEART: Regular rate and rhythm, S1, S2 without murmur, rub or gallop. ABDOMEN: Soft, nontender, nondistended, hypoactive bowel sounds in Left lower quadrant. normoactive bowel sounds in other quadrants, no guarding, no rebound EXTREMITIES: warm, well-perfused, no edema. NEUROLOGICAL: Normal speech, gait not observed. PSYCH: Normal mood, normal affect. LABS Laboratory Results - last 24 hr 08/25/19 08/25/19 08/25/19 14:15 20:31 22:21 WBC RBC Hgb Hct MCV MCH MCHC RDW Plt Count MPV Sodium Potassium Chloride Carbon Dioxide Anion Gap BUN Creatinine Est GFR (CKD-EPI)AfAm Est GFR (CKD-EPI)NonAf POC Glucometer 137 Random Glucose Lactic Acid 1.9 Calcium Phosphorus Magnesium Total Bilirubin AST ALT Alkaline Phosphatase Total Protein Albumin TSH COVID-19 (DRAKE) Not detected 08/26/19 08/26/19 08/26/19 06:07 06:45 06:45 WBC 2.0 L RBC 4.40 Hgb 10.4 L Hct 33.0 L MCV 75.1 L MCH 23.7 L MCHC 31.6 L RDW 23.0 H Plt Count 126 L MPV 8.4 D Sodium 139 Potassium 3.3 L Chloride 106 Carbon Dioxide 27 Anion Gap 6 L BUN 16.8 Creatinine 0.8 Est GFR (CKD-EPI)AfAm 99.17 Est GFR (CKD-EPI)NonAf 85.56 POC Glucometer 118 Random Glucose 110 H Lactic Acid Calcium 7.5 L Phosphorus 2.2 L Magnesium 1.9 Total Bilirubin 1.4 H AST 23 ALT 13 Alkaline Phosphatase 145 H Total Protein 5.7 L Albumin 2.7 L TSH 0.64 COVID-19 (DRAKE) 08/26/19 08/26/1920 07:47 11:50 16:17 WBC RBC Hgb Hct MCV MCH MCHC RDW Plt Count MPV Sodium Potassium Chloride Carbon Dioxide Anion Gap BUN Creatinine Est GFR (CKD-EPI)AfAm Est GFR (CKD-EPI)NonAf POC Glucometer 119 108 139 Random Glucose Lactic Acid Calcium Phosphorus Magnesium Total Bilirubin AST ALT Alkaline Phosphatase Total Protein Albumin TSH COVID-19 (DRAKE) HOSPITAL COURSE: 79 YO M PMH NIDDM, gastric cancer (s/p gastrectomy at [facility] 6 Yrs ago), and Stage IV colon cancer (dx 1 yr ago, now being seen by Dr. Satish Gustafson; received leucovorin/fluorouracil this past Thursday at [facility]) p/w nausea, NBNB vomiting since 08/23. ON arrival, his lactic acid was 2.[address] A/P showed proximal small bowel dilation(jejunum up to 4cm), dilated small bowel loops within Left lateral abdomen consistent with obstruction. Pt was NPO and given IVF. Evaluation by surgery noted that given the complexity of the case, the patient needs higher level of care, and would benefit from the supervision of physicians who oversaw his gastrectomy and his current chemotherapy treatment. . Pt was accept to [facility]. Accepting physician is Dr. Bernie Delarosa. Date of Admission:08/25/19 CT A/P: proximal small bowel dilation(jejunum up to 4cm), distal abdominal aorta(~2.5cm), borderline dilation of Right common iliac artery, and a 4X3X2 cm nonspecific ab wal soft tissue nodule/lesion noted within the L paramidline aspect of the epigastric region. Dilated Small bowel loops within Left lateral abdomen consistent with obstruction. Distal small bowel and colon demonstrated collapsed appearance CT cspine: multilevel mild degenerative disc disease. Mild compression of T10 superior endplate. Mod dilation of the entire esophagus with multiple surgical sutures intact Date of Discharge: 08/26/19 Minutes to complete discharge: 45 Discharge Summary Problems reviewed: Yes Reason For Visit: SYNCOPE AND COLLAPSE,NAUSEA AND VOMITING Current Active Problems Nausea and vomiting (Acute) Syncope and collapse (Acute) Condition: Stable - Instructions Disposition: TRANSFER ACUTE CARE/OTHER HOSP - Home Medications Comprehensive Discharge Medication List: Ambulatory Orders Amlodipine Besylate [Norvasc -] 10 mg PO DAILY 08/25/19 Lisinopril 20 mg PO DAILY 08/25/19 Omeprazole 20 mg PO DAILY 08/25/19 metFORMIN HCL [Metformin HCl] 500 mg PO DAILY 08/25/19 Meclizine HCl 25 mg PO TID 08/26/19 This patient is new to me today: No Emergency Visit: Yes ED Registration Date: 08/25/19 Care time: The patient presented to the Emergency Department on the above date and was hospitalized for further evaluation of their emergent condition. Critical Care patient: No - Discharge Referral Referred to [facility] Med P.C.: No ATTENDING PHYSICIAN STATEMENT I saw and evaluated the patient. I reviewed the resident's note and discussed the case with the resident. I agree with the resident's findings and plan as documented. SUBJECTIVE: OBJECTIVE: ASSESSMENT AND PLAN:
[2019-08-26 21:03] LABS: BASO % 0.1 % (0-2.0); EOS % 0.1 % (0-4.5); HEMATOCRIT 32.5 % (35.4-49); HEMOGLOBIN 10.2 GM/dL (11.7-16.9); LYMPH % 11.5 % (8-40); MCH 24.3 pg (25.7-33.7); MCHC 31.5 g/dl (32.0-35.9); MEAN PLT VOLUME 7.2 fl (7.5-11.1); MONO % 5.8 % (3.8-10.2); NEUT % 82.5 % (42.8-82.8); PLATELET COUNT 116 K/MM3 (134-434); RBC 4.22 M/mm3 (4.00-5.60); RDW 22.8 % (11.9-15.9); WHITE BLOOD COUNT 3.1 K/mm3 (4.0-10.0)
[2019-08-26] MEDS ORDERED: BUDESONIDE/FORMETEROL FUMARATE 80/4.5 mcg INHALER IH SCH (22:00)
[2019-08-26 22:02] LABS: ANISOCYTOSIS 3+; MACROCYTOSIS 0; PLATELET ESTIMATE DECREASED
[2019-08-26 22:17] LABS: ANISOCYTOSIS 3+; MACROCYTOSIS 1+; OVALOCYTE 1+; PLATELET ESTIMATE DECREASED; TEAR DROP CELLS 1+
--- NOTE | 2019-08-27 00:23 | CONS ---
DATE OF CONSULTATION: DATE OF DICTATION: 08/26/2019 INFECTIOUS DISEASE CONSULTATION HISTORY OF PRESENT ILLNESS: The patient is a 79-year-old male who was evaluated for possible neutropenic sepsis. History was obtained from the patient's daughter, who was present at the time of the examination and served as a predatory hunter. In addition, history was obtained from the chart. He was admitted to the hospital on August 25, 2019, after falling in a near-syncopal episode. There was no report of any significant trauma, no head trauma or loss of consciousness. He had had poor oral intake and nausea and vomiting for 3 days prior to admission. The patient was admitted to the hospital where a CAT scan of the abdomen and pelvis showed findings consistent with a small bowel obstruction. He was seen in consultation by surgery. Patient presently is not vomiting. He reports having a bowel movement 1 day prior to admission. His course has been complicated by low-grade fever and worsening leukopenia. He has a history of stage 4 colon cancer and receives chemotherapy. His last dose of chemotherapy was on August 23, 2019. He denies any chest pain, shortness of breath, cough, sputum production. No dysuria or hematuria. No complaints of skin infections. PAST MEDICAL HISTORY: Positive for gastric carcinoma status post total gastrectomy 6 years ago, history of stage 4 colon cancer on chemotherapy, cholecystectomy. ALLERGIES: No known allergies. MEDICATION: Tylenol, amlodipine, ibuprofen, lisinopril, metformin, omeprazole. SOCIAL HISTORY: Resides at home with family members. No active tobacco or alcohol use. SYSTEMS REVIEW: Neurologic: Status post near-syncopal episode. Cardiac: Negative for chest pain or palpitations. Respiratory: Negative for cough or sputum production. Gastrointestinal: As per HPI. Genitourinary: Negative for urinary tract infection. LABORATORY DATA: White count on admission 5.9 with an absolute neutrophil count of 4.8, white count presently 2.0, no differential. Hematocrit 33.0, platelet count 126, creatinine 0.8, alkaline phosphatase 145. Chest x-ray negative. Urinalysis 0 to 3 white cells. COVID-19 PCR negative. PHYSICAL EXAMINATION: General: On exam, he is awake and alert, he is supine in bed, in no acute distress. He is not acutely toxic appearing. Vital signs: Temperature 100.3, blood pressure 101/45, pulse 78 regular, respirations 20 per minute. HEENT: Sclerae anicteric. Cardiovascular: Heart sounds S1, S2. Lungs: Clear bilaterally right chest port no erythema or tenderness. Abdomen: Soft. Healed surgical scars. No tenderness elicited. Abdomen is not distended. Extremities: Negative for edema. Negative Homans sign. IMPRESSION: 1. Rule out small bowel obstruction. 2. Febrile neutropenia, rule out neutropenic sepsis. 3. Stage 4 colon cancer on chemotherapy. Await cultures, empiric antibiotic coverage with Zosyn plus stat dose vancomycin. Surgical followup oncology evaluation. Case discussed with patient's daughter present at the time of the examination. Thank you for the kind referral. SUKHJINDER MATTHEWS M.D. ANAT/[id number]
--- NOTE | 2019-08-27 07:54 | PN ---
Teaching Attending Note Name of Resident: Maury Locke ATTENDING PHYSICIAN STATEMENT I saw and evaluated the patient. I reviewed the resident's note and discussed the case with the resident. I agree with the resident's findings and plan as documented. ASSESSMENT AND PLAN: 79 y.o. [place]-Speaking M w/ PMHx. of DM, Gastric CA(Sveta-en-Y Gastrectomy 6 years ago at [facility], and Colon CA(Ddx. 1 year ago currently on 5-FU monotherapy for 6 months). Pt. presented for nausea and vomiting that started 5 days ago. Pt. states that he has epigastric tenderness and feels nauseous. Pt. denies any fever or chills, pain in his chest, diarrhea or constipation. Pt. endorses shortness of breath and is dyspneic on conversation which he states has been going on for the last few days as well. CT a/p suggestive of proximal SBO , 4cm abdominal wall left nodular lesion WBC 3100/ ANC 2600 Started empiric zosyn transfer to [facility] for further management with primary team
[2019-08-27] MEDS ORDERED: TIOTROPIUM BROMIDE 2.5 MCG (SPIRIVA) RESPIMAT INHALER IH SCH (10:00)
[2019-08-27] MEDS ORDERED: VANCOMYCIN 1 GM in D5W (PRE-DOCKED) 1,000 MG/250 ML IVPB SCH (10:00)
== END 2019-08-26 23:30 | disposition short-term general hospital (02) | DRG 389 ==
LOC: JER 10:15 → JERBED 17:04 → J8W 18:52
PROVIDERS: ADMIT Internal Medicine; ATTEND Internal Medicine
PROC: 0D9670Z Drainage of Stomach with Drainage Device, Via Natural or Artificial Opening (ICD-10-PCS; principal; 2019-08-25)
DX: K56.50 Intestinal adhesions [bands], unspecified as to partial versus complete obstruction (principal); C78.5 Secondary malignant neoplasm of large intestine and rectum; M51.04 Intervertebral disc disorders with myelopathy, thoracic region; R55 Syncope and collapse; E86.0 Dehydration; I10 Essential (primary) hypertension; E11.9 Type 2 diabetes mellitus without complications; M51.34 Other intervertebral disc degeneration, thoracic region; T45.1X5A Adverse effect of antineoplastic and immunosuppressive drugs, initial encounter; D70.9 Neutropenia, unspecified; Z85.028 Personal history of other malignant neoplasm of stomach
CPT/HCPCS: 36415; 70450-TC; 71045-TC-FY; 72125-TC; 72128-TC; 74176-TC; 74177-TC; 80053; 81003; 82550; 82962; 83605; 83690; 83735; 84100; 84443; 84484; 85025; 85027; 85610; 85730; 87040; 87086; 93005; 93010; 99285-25; J0131; U0003